=== PATIENT | female | born 1955 | race Caucasian/White ===

== ENCOUNTER 2022-09-24 09:20 | Outpatient (CLI) | payer OTHER, SELFPAY | END 2022-09-24 09:21 | disposition home or self-care (01) | LOC: NFLDREF 09-26 06:26 | PROVIDERS: PCP Family Medicine; Referring Provider Family Medicine; Visit Provider Family Medicine | DX: Z00.00 Encounter for general adult medical examination without abnormal findings (principal); E03.9 Hypothyroidism, unspecified | CPT/HCPCS: 84443 ==

== ENCOUNTER 2023-01-22 08:23 | Outpatient (CLI) | payer OTHER, SELFPAY ==
--- NOTE | 2023-01-22 10:15 | W.ANESCHARGE ---
Anesthesia Charges Start Date/Time Anesthesia Start Date: 01/22/23 Anesthesia Start Time: 09:35 Stop Date/Time Anesthesia Stop Date: 01/22/23 Anesthesia Stop Time: 10:12
--- NOTE | 2023-01-22 10:18 | W.ANESCHARGE ---
Anesthesia Charges Start Date/Time Anesthesia Start Date: 01/22/23 Anesthesia Start Time: 09:35 Stop Date/Time Anesthesia Stop Date: 01/22/23 Anesthesia Stop Time: 10:12
== END 2023-01-22 08:24 | disposition home or self-care (01) ==
LOC: OP CLINIC 08:24
PROVIDERS: PCP Family Medicine; Visit Provider Surgery
DX: Z12.11 Encounter for screening for malignant neoplasm of colon (principal); K57.30 Diverticulosis of large intestine without perforation or abscess without bleeding; Z86.010 Personal history of colon polyps
CPT/HCPCS: 00811; 00812; 45378; J2704

== ENCOUNTER 2023-01-23 12:54 | Outpatient (CLI) | payer OTHER, SELFPAY ==
--- NOTE | 2023-01-23 13:00 | CRLHL7_ITS ---
For Patients: As a result of the Century Cures Act, medical imaging exams and procedure reports are released immediately into your electronic medical record. You may view this report before your referring provider. If you have questions, please contact your health care provider. BILATERAL SCREENING MAMMOGRAM WITH COMPUTER-AIDED DETECTION AND TOMOSYNTHESIS TECHNIQUE: CC and MLO views were obtained. These mammographic images have been obtained using full-field digital technique. These mammographic images were interpreted with the benefit of computer-aided detection. Breast tomosynthesis was used in this interpretation. COMPARISON FILM: 12/29/19, 12/22/18, 08/20/17. FINDINGS: The breasts are heterogeneously dense, which may obscure small masses. IMPRESSION: There is no radiographic evidence for malignancy. ASSESSMENT: BI-RADS Category 1: Negative RECOMMENDATION: Routine screening mammogram in 1 year. A lay language report of this examination will be provided to the patient. ROCCO DAIGLE M.D. Diagnostic Radiologist [email or web address] Transcribed: 01/24/2023, 6:[address]/Dictated by: Rocco Daigle MD @ 01/24/2023 1:09:00 PM (Electronically Signed)
--- NOTE | 2023-01-23 13:30 | CRLHL7_ITS ---
For Patients: As a result of the Century Cures Act, medical imaging exams and procedure reports are released immediately into your electronic medical record. You may view this report before your referring provider. If you have questions, please contact your health care provider. DXA BONE MINERAL DENSITY STUDY Current height (in): 66. Weight (lb): 160.0. Menopause age: 56. Ethnicity: White. 1. Have you had a previous hip or vertebral fracture? No. 2. Have you had any fractures during your adult life which did not result from significant trauma (e.g., auto accident)? No. 3. Did either of your parents have a hip fracture? Yes. 4. Do you smoke? No. 5. Have you ever taken Glucocorticoids? No. 6. Do you have rheumatoid arthritis? No. 7. Do you have secondary osteoporosis? No. 8. Do you drink 3 or more alcoholic drinks per day? No. 9. Are you being treated for osteoporosis? No. 10. Have you ever taken any of the following medications: Actonel, Evista, Fosamax, Miacalcin, Reclast, Boniva, Forteo, HRT (i.e. estrogen/hormone therapy), Protelos, Prolia, Vitamin D, Calcium, other ??? please specify. ANSWER: Yes, Vitamin D and Calcium. 11. Do you have any of the following medical conditions: Anorexia or bulimia, asthma or emphysema, end stage renal disease, hyperparathyroidism, any seizure disorders, cancer, inflammatory bowel diseases, hysterectomy, other ??? please specify. ANSWER: No. 12. What was your maximum height (inches)? 65. 13. Do you perform weight bearing exercise regularly? No. 14. Do you regularly consume dairy products? Yes. 15. Do you drink caffeinated beverages? Yes. If female: 16. At what age did your period start? 14. 17. Are you premenopausal? No. 18. How many full term pregnancies have you had? 0. 19. Have you ever missed your period for more than 6 months in a row (not including or menopause)? No. TECHNIQUE: Bone mineral density study was performed using the [employer]. FINDINGS: The results of the study expressed as bone mineral density (BMD) are as follows: Lumbar spine L1 to L4: BMD: 1.149 g/cm2. T-score: 0.9. Z-score: 2.7. Neck Left: BMD: 0.609 g/cm2. T-score: -2.2. Z-score: -0.6. Right: BMD: 0.633 g/cm2. T-score: -1.9 . Z-score: -0.4. Total Left: BMD: 0.866 g/cm2. T-score: -0.6 . Z-score: 0.6. Right: BMD: 0.837 g/cm2. T-score: -0.9 . Z-score: 0.4. IMPRESSION: Osteopenia. *Comparison exams done prior to 09/2019 were performed on different unit, [employer]. FRAX 10-year Fracture Risk Major Osteoporotic Fracture: 21 percent Hip Fracture: 20 percent Reported Risk Factors: [place] () Neck BMD=0.609, BMI=25.8 Parental fracture. Rocco Bazzi M.D. Diagnostic Radiologist [email or web address] JR/Dictated by: Rocco Bazzi MD @ 01/24/2023 6:19:00 AM (Electronically Signed)
== END 2023-01-23 12:55 | disposition home or self-care (01) ==
LOC: MAMMO 12:54
PROVIDERS: PCP Family Medicine; Visit Provider Family Medicine
DX: Z12.31 Encounter for screening mammogram for malignant neoplasm of breast (principal); R92.2 Inconclusive mammogram; Z78.0 Asymptomatic menopausal state; M85.89 Other specified disorders of bone density and structure, multiple sites; E55.9 Vitamin D deficiency, unspecified
CPT/HCPCS: 77063; 77067; 77080

== ENCOUNTER 2024-01-14 08:15 | Outpatient (RCR) | payer OTHER, SELFPAY | END 2024-03-10 11:56 | disposition home or self-care (01) | PROVIDERS: PCP Family Medicine; Visit Provider Orthopaedic Surgery Sports Medicine | DX: M47.816 Spondylosis without myelopathy or radiculopathy, lumbar region (principal); M41.9 Scoliosis, unspecified; M76.891 Other specified enthesopathies of right lower limb, excluding foot; M25.761 Osteophyte, right knee; M70.61 Trochanteric bursitis, right hip; Z51.89 Encounter for other specified aftercare | CPT/HCPCS: 97110; 97162 ==

== ENCOUNTER 2024-09-18 09:49 | Outpatient (CLI) | payer MEDICARE, BC, SELFPAY | END 2024-09-18 09:50 | disposition home or self-care (01) | LOC: NFLDREF 09-20 05:37 | PROVIDERS: PCP Family Medicine; Referring Provider Family Medicine; Visit Provider Family Medicine | DX: Z00.00 Encounter for general adult medical examination without abnormal findings (principal); E55.9 Vitamin D deficiency, unspecified; E03.9 Hypothyroidism, unspecified; R03.0 Elevated blood-pressure reading, without diagnosis of hypertension; M85.80 Other specified disorders of bone density and structure, unspecified site; Z13.1 Encounter for screening for diabetes mellitus; Z13.6 Encounter for screening for cardiovascular disorders | CPT/HCPCS: 80053; 80061; 82306; 84443 ==

== ENCOUNTER 2024-11-05 12:39 | Outpatient (CLI) | payer MEDICARE, BC, SELFPAY ==
--- NOTE | 2024-11-05 13:00 | CRLHL7_ITS ---
For Patients: As a result of the Century Cures Act, medical imaging exams and procedure reports are released immediately into your electronic medical record. You may view this report before your referring provider. If you have questions, please contact your health care provider. INDICATION: Pain TECHNIQUE: Venous duplex ultrasound of the left lower extremity utilizing compression with kaba-scale, color Doppler, and spectral Doppler imaging. COMPARISON: None FINDINGS: There is no sonographic evidence of deep vein thrombosis in the left common femoral, deep femoral, superficial femoral, popliteal, posterior tibial, peroneal, or contralateral common femoral veins. There is no visualized superficial vein thrombosis. Complex Spence`s cyst extending from the medial thigh to proximal calf measuring 10 x 4.5 x 1.2 centimeters. IMPRESSION: No deep vein thrombosis in the left lower extremity. Dictated by Colby Chapman MD @ 11/05/2024 1:36:09 PM (Electronically Signed)
== END 2024-11-05 12:40 | disposition home or self-care (01) ==
LOC: US 12:44
PROVIDERS: PCP Family Medicine; Visit Provider Emergency Medicine
DX: M79.662 Pain in left lower leg (principal); M71.22 Synovial cyst of popliteal space [Baker], left knee
CPT/HCPCS: 93971